=== PATIENT | female | born 1940 | race Caucasian/White ===

== ENCOUNTER 2018-01-08 17:50 | Emergency (ER) | payer MEDICARE, OTHER ==
[~2018-01-08 17:50] MED LIST: ADV100/50 INH; AMLO-96 PO; ASPI-1471 PO; ATR80PT PO; BLOO-1318 MC; BLOO-1511 MC; CIPR-345 PO; CYAN100088 PO; DAR100 PO; DEXL60CA6 PO; DIA5 PO; DIABETIC SHOES; DULO30CA35 PO; EZET1TAB63 PO; FAM20 PO; FER325 PO; FERR325T5 PO; FLU45SYR17 IM; FLUT1DIS28 IH; FLUT1DIS29 IH; GLI2 PO; GLIM2TAB42 PO; GLIM4TAB50 PO; HCTZ25 PO; HYDR12.558 PO; INSU100I30 SQ; IPRA4AER IH; LIS20 PO; LISI-347 PO; LISI-355 PO; LISI-357 PO; LISI-374 PO; LOR5/325 PO; MET500 PO; METF-1 PO; METF-420 PO; METO100T20 PO; MOM PO; NAPR-1043 PO; NITR-1 PO; OMEP-218 PO; OMEP40CA48 PO; OXYGENHOME INH; PANT40TA65 PO; PEN1DIS. MC; PNEU0.5D3 IM; PRAV40TA78 PO; PRE20 PO; PROAIRPT IH; RANI-366 PO; SIMV-44 PO; SIMV-54 PO; SITA50TA6 PO; TRAGENTA; WAR25 PO; penicillin PO
[2018-01-08] MEDS ORDERED: AMOX-556 PO (18:08)
--- NOTE | 2018-01-08 18:27 | EKG ---
[place] [facility] [place]IENT NAME: CHARITO BELL : [id number] MR: [id number] V: [id number] EXAM DATE: ORDERING PHYSICIAN: ANIKET HAYNES TECHNOLOGIST: KATHRYN Steven Reason : CHEST PAIN Blood Pressure : / mmHG Vent. Rate : 049 BPM Atrial Rate : 049 BPM P-R Int : 154 ms QRS Dur : 090 ms QT Int : 438 ms P-R-T Axes : 067 -18 052 degrees QTc Int : 395 ms Marked sinus bradycardia Abnormal ECG No previous ECGs available Confirmed by MARTA PÉREZ ([id number]) on 01/09/2018 12:30:35 PM Referred By: Confirmed By:MARTA PÉREZ
[2018-01-08 18:38] LABS: PLATELET COUNT, AUTOMATED 248 K/uL (150-450)
--- NOTE | 2018-01-08 18:44 | ER Report ---
History and Physical Time Seen By MD: 18:00 Hx. of Stated Complaint: patient reports high blood pressure x 3-4 days, states high today was 185/88, reports headaches and states sometimes she seems kind of out of it HPI/ROS CHIEF COMPLAINT: Hypertension, headache HISTORY OF PRESENT ILLNESS: She is a 77-year-old female coming by her , who presents the ED with complaint of elevated blood pressures for the past 1-2 weeks. She states that she has been checking her blood pressure at home and noted that it has been consistently about 180-190/90. She states that she is on lisinopril and metoprolol for her blood pressure but has not changed her medications recently. She states that she just arrived [place] from [place] where she usually spends the winter months 2 weeks ago. Patient denies any chest pain, shortness of breath, Alcon pain, nausea, vomiting. She does wear oxygen daily due to her COPD. She states that she has been noticing a headache in the past week. She denies any head injury. She has not noted any dizziness, numbness, tingling. REVIEW OF SYSTEMS: Constitutional: No fever, no chills. Eyes: No discharge. ENT: No sore throat. Cardiovascular: See history of present illness. Respiratory: No cough, no shortness of breath. Gastrointestinal: No abdominal pain, no vomiting. Genitourinary: No hematuria. Musculoskeletal: No back pain. Skin: No rashes. Neurological: See history of present illness. Allergies: Coded Allergies: No Known Allergies (Verified Allergy, Mild, 01/08/18) Uncoded Allergies: CLEAR TAPE (Allergy, Unknown, 05/10/15) Home Meds Active Scripts Blood Sugar Diagnostic (GLUCOSE TEST STRIP) 1 Each Strip, 1 EACH MC BID, #2 BOX 11 Refills Prov:SUSAN GALE MD 12/26/17 Insulin Glargine 100 Un/Ml Pen (LANTUS SOLOSTAR PEN) 100 Unit/1 Ml Insuln.pen, 20 UNIT SQ QHS, #1 BOX 1 Refill 20 units s/c at bedtime. Increase by 2 units every 2 days until fasting glucose is 130 or less. Prov:SUSAN GALE MD 12/26/17 Metoprolol Succinate (METOPROLOL SUCCINATE) 100 Mg Tab.er.24h, 1 TAB PO QDAY, # 90 TAB 1 Refill Prov:SUSAN GALE MD 10/02/17 Sitagliptin Phosphate (JANUVIA) 50 Mg Tablet, 50 MG PO QDAY, #90 TAB 1 Refill Prov:SUSAN GALE MD 10/02/17 Ranitidine Hcl (ZANTAC) 150 Mg Tablet, 150 MG PO BID, #60 TAB Prov:SUSAN GALE MD 08/26/17 Pen Needle, Diabetic, Safety (PEN NEEDLE) 1 Each Dis.needle, EACH MC DAILY Y for PRN for one year, #1 Prov:SUSAN GALE MD 08/23/17 Glimepiride (GLIMEPIRIDE) 4 Mg Tablet, 1 TAB PO DAILY, #10 TAB 0 Refills Prov:SUSAN GALE MD 06/17/17 Duloxetine Hcl (CYMBALTA) 30 Mg Capsule.dr, 30 MG PO BID, #10 CAP 0 Refills Prov:SUSAN GALE MD 06/17/17 Aspirin (ASPIR 81) 81 Mg Tablet.dr, 81 MG PO QDAY, #1 TAB Prov:SUSAN GALE MD 03/29/17 Ferrous Sulfate (FEOSOL) 325 Mg Tablet, 325 MG PO DAILY, #90 TAB 3 Refills Prov:SUSAN GALE MD 03/29/17 Cyanocobalamin (Vitamin B-12) (B-12) 1,000 Mcg Tablet.er, 2 TAB PO DAILY, #180 TAB 3 Refills Prov:SUSAN GALE MD 03/29/17 Fluticasone/Salmeterol (ADVAIR 250-50 DISKUS) 1 Each Disk.w.dev, 1 EACH IH BID, #3 DISK 3 Refills Prov:SUSAN GALE MD 03/29/17 Ipratropium/Albuterol Sulfate (COMBIVENT RESPIMAT INHAL SPRAY) 4 Gm Aer.w.adap, 1 PUFF IH QID, #3 INHALER 3 Refills Prov:SUSAN GALE MD 09/27/16 Lisinopril (LISINOPRIL) 40 Mg Tablet, 1 TAB PO QDAY, #30 TAB 0 Refills Prov:SUSAN GALE MD 09/06/16 [Diabetic Shoes] No Conflict Check, MISC ONCE, #1 0 Refills Prov:SUSAN GALE MD 12/26/15 Reported Medications Amoxicillin/Potassium Clav (AUGMENTIN 500-125 TABLET) 1 Each Tablet, 1 TAB PO Q8H for 5 Days, TAB 01/08/18 Oxygen (OXYGEN) Inha, 3 L INH HS, L 06/17/17 Discontinued Scripts Diazepam (VALIUM) 5 Mg Tablet, 5 MG PO QHS, #1 TAB Prov:SUSAN GALE MD 06/03/17 Pantoprazole Sodium (PANTOPRAZOLE SODIUM) 40 Mg Tablet.dr, 1 TAB PO QDAY, #90 TAB.SR 3 Refills Prov:SUSAN GALE MD 06/08/16 Reviewed Nurses Notes: Yes Old Medical Records Reviewed: Yes Hx Smoking: No Smoking Status: Former Smoker Hx Substance Use Disorder: No Hx Alcohol Use: No Constitutional Vital Sign - Last 24 Hours 01/08/18 01/08/18 18:45 19:11 Pulse 50 Resp 15 Pulse Ox 97 O2 Delivery Room Air O2 Flow Rate 2.0 Physical Exam General Appearance: The patient is alert, has no immediate need for airway protection and no signs of toxicity. Patient appears to be no acute distress. Eyes: Pupils equal and round no pallor or injection. ENT, Mouth: Mucous membranes are moist. Respiratory: There are no retractions, lungs are clear to auscultation. Cardiovascular: Regular rate and rhythm. Gastrointestinal: Abdomen is soft and non tender, no masses, bowel sounds normal. Neurological: Cranial nerves II-12 intact. Skin: Warm and dry, no rashes. Musculoskeletal: Neck is supple non tender. Extremities are nontender, nonswollen and have full range of motion. DIFFERENTIAL DIAGNOSIS: After history and physical exam differential diagnosis was considered for headache including but not limited to subarachnoid hemorrhage , migraine headache, tension headache and infectious causes such as meningitis, pharyngitis and sinusitis. Medical Decision Making Data Points Result Diagram: 01/08/18 1830 01/08/18 1830 Laboratory Hematology Test 01/08/18 18:30 Red Blood Count 4.35 M/uL (4.17-5.56) Mean Corpuscular Volume 85.1 fL (80.0-96.0) Mean Corpuscular Hemoglobin 28.6 pg (26.0-33.0) Mean Corpuscular Hemoglobin Concent 33.5 g/dL (32.0-36.0) Red Cell Distribution Width 14.6 % (11.5-14.5) Mean Platelet Volume 8.5 fL (7.2-11.1) Neutrophils (%) (Auto) 71.8 % (39.4-72.5) Lymphocytes (%) (Auto) 16.3 % (17.6-49.6) Monocytes (%) (Auto) 8.4 % (4.1-12.4) Eosinophils (%) (Auto) 2.5 % (0.4-6.7) Basophils (%) (Auto) 1.0 % (0.3-1.4) Nucleated RBC Relative Count (auto) 0.0 /100WBC Neutrophils # (Auto) 7.7 K/uL (2.0-7.4) Lymphocytes # (Auto) 1.8 K/uL (1.3-3.6) Monocytes # (Auto) 0.9 K/uL (0.3-1.0) Eosinophils # (Auto) 0.3 K/uL (0.0-0.5) Basophils # (Auto) 0.1 K/uL (0.0-0.1) Nucleated RBC Absolute Count (auto) 0.00 K/uL Sodium Level 140 mmol/L (137-145) Potassium Level 4.3 mmol/L (3.5-5.0) Chloride Level 99 mmol/L (98-107) Carbon Dioxide Level 29 mmol/L (22-31) Blood Urea Nitrogen 25 mg/dl (7-18) Creatinine 1.40 mg/dl (0.52-1.04) Glomerular Filtration Rate Calc 36.4 Random Glucose 97 mg/dl (75-110) Calcium Level 9.5 mg/dl (8.4-10.2) Total Bilirubin 0.4 mg/dl (0.2-1.3) Aspartate Amino Transf (AST/SGOT) 14 U/L (0-35) Alanine Aminotransferase (ALT/SGPT) 18 U/L (0-56) Alkaline Phosphatase 91 U/L (0-126) Troponin I < 0.012 ng/ml Total Protein 7.5 gm/dl (6.3-8.2) Albumin 3.6 g/dl (3.5-5.0) Chemistry Test 01/08/18 18:30 White Blood Count 10.8 k/uL (4.5-11.0) Red Blood Count 4.35 M/uL (4.17-5.56) Hemoglobin 12.4 g/dL (12.0-16.0) Hematocrit 37.0 % (34.0-47.0) Mean Corpuscular Volume 85.1 fL (80.0-96.0) Mean Corpuscular Hemoglobin 28.6 pg (26.0-33.0) Mean Corpuscular Hemoglobin Concent 33.5 g/dL (32.0-36.0) Red Cell Distribution Width 14.6 % (11.5-14.5) Platelet Count 248 K/uL (150-450) Mean Platelet Volume 8.5 fL (7.2-11.1) Neutrophils (%) (Auto) 71.8 % (39.4-72.5) Lymphocytes (%) (Auto) 16.3 % (17.6-49.6) Monocytes (%) (Auto) 8.4 % (4.1-12.4) Eosinophils (%) (Auto) 2.5 % (0.4-6.7) Basophils (%) (Auto) 1.0 % (0.3-1.4) Nucleated RBC Relative Count (auto) 0.0 /100WBC Neutrophils # (Auto) 7.7 K/uL (2.0-7.4) Lymphocytes # (Auto) 1.8 K/uL (1.3-3.6) Monocytes # (Auto) 0.9 K/uL (0.3-1.0) Eosinophils # (Auto) 0.3 K/uL (0.0-0.5) Basophils # (Auto) 0.1 K/uL (0.0-0.1) Nucleated RBC Absolute Count (auto) 0.00 K/uL Glomerular Filtration Rate Calc 36.4 Calcium Level 9.5 mg/dl (8.4-10.2) Total Bilirubin 0.4 mg/dl (0.2-1.3) Aspartate Amino Transf (AST/SGOT) 14 U/L (0-35) Alanine Aminotransferase (ALT/SGPT) 18 U/L (0-56) Alkaline Phosphatase 91 U/L (0-126) Troponin I < 0.012 ng/ml Total Protein 7.5 gm/dl (6.3-8.2) Albumin 3.6 g/dl (3.5-5.0) EKG/Imaging EKG Interpretation 12 lead EKG: Rhythm: Sinus bradycardia, rate [address] segments: No acute ST changes identified. Monitor Interpretation: Sinus Bradycardia Imaging CXR: IMPRESSION: 1. No acute cardiopulmonary process. Report Dictated By: Vince Rojas at 01/08/2018 6:59 PM Report E-Signed By: Vince Rojas at 01/08/2018 7:[address] Head: IMPRESSION: 1. Senescent changes without acute abnormality. Report Dictated By: Vince Rojas at 01/08/2018 7:45 PM Report E-Signed By: Vince Rojas at 01/08/2018 7:48 PM ED Course/Re-evaluation Clinical Indication for ER IV: Hydration ED Course Will obtain labs, CT of the head, chest x-ray, EKG. 01/08/2018 8:36:10 pm - assessed all labs, CT, chest x-ray, EKG with patient. Everything appears to be normal. Patient will be given 0.2 mg by mouth clonidine to lower her blood pressure. 01/08/2018 9:25:54 pm - her blood pressure is now 160/80 which seems to be improving. Discussed that she likely will need further blood pressure management by her primary care provider. She should monitor her blood pressure closely at home and discussed signs and symptoms of hypotension including dizziness and weakness. Decision to Disposition Date: Jan 08, 2018 Decision to Disposition Time: 21:25 Depart Departure Latest Vital Signs Vital Signs Date Time Temp Pulse Resp B/P (MAP) Pulse Ox O2 Delivery O2 Flow Rate FiO2 01/08/18 19:11 50 15 97 Room Air 01/08/18 18:45 2.0 Impression: Primary Impression: Hypertensive urgency Condition: Improved Disposition: HOME OR SELF-CARE Referrals: SUSAN GALE MD (PCP) Patient Instructions: Chronic Hypertension (ED) Additional Instructions: Stay well-hydrated. Monitor blood pressure closely at home. Follow-up with primary care provider in one to 2 days. If having any worsening or concerning symptoms may return to the emergency department. ANIKET HAYNES PA-C Jan 08, 2018 18:44
--- NOTE | 2018-01-08 19:03 | RADIOLOGY IMAGING REPORT ---
FACILITY: [facility] PATIENT NAME: Patrica Huff : 1940 MR: [id number] V: [id number] EXAM DATE: ORDERING PHYSICIAN: ANIKET HAYNES TECHNOLOGIST: Location: [facility] - [place] Patient: Patrica Huff : 1940 Visit/Account:[id number] Date of Sevice: 01/08/2018 CHEST SINGLE AP Indication: Chest tightness.. Comparison: None available Findings: Cardiomediastinal silhouette and pulmonary vessels within normal limits. There is no focal infiltrate or lobar consolidation. No pneumothorax or pleural effusion. No nodule. Upper abdomen is unremarkable. No acute bony abnormality. Degenerative change seen in both shoulders. IMPRESSION: 1. No acute cardiopulmonary process. Report Dictated By: Vince Rojas at 01/08/2018 6:59 PM Report E-Signed By: Vince Rojas at 01/08/2018 7:00 PM WSN:[id number]
[2018-01-08] MEDS ORDERED: cloNIDine HCL 0.1 MG TAB PO ONE (19:20)
--- NOTE | 2018-01-08 19:53 | RADIOLOGY IMAGING REPORT ---
FACILITY: [facility] - [place] PATIENT NAME: Patrica Huff : 1940 MR: [id number] V: [id number] EXAM DATE: ORDERING PHYSICIAN: ANIKET HAYNES TECHNOLOGIST: Location: [facility] - [place] Patient: Patrica Huff : 1940 Visit/Account:[id number] Date of Sevice: 01/08/2018 CT Head without contrast Indication: Headache, hypertension and dizziness. Comparison: None available Technique: Axial CT images were obtained through the brain from the skull base to the vertex without administration of IV contrast. Reformatted coronal and sagittal images were also obtained. One of the following dose optimization techniques was utilized in the performance of this exam: autom ated exposure control; adjustment of the mA and/or kV according to the patient's size; or use of an i terative reconstruction technique. Specific details can be referenced in the facility's radiology CT exam operational policy. Findings: No evidence of mass, mass effect, or midline shift. No acute intracranial hemorrhage or acute territorial infarction. No extra axial fluid collection or hydrocephalus. Age-related cerebral atrophy. Periventricular white matter ischemic changes consistent small vessel disease. Yin/white matter differentiation appears n ormal. Mild bilateral internal carotid artery calcifications. Bony structures show no fractures or lesions. The visualized paranasal sinuses and mastoid air cells are clear. IMPRESSION: 1. Senescent changes without acute abnormality. Report Dictated By: Vince Rojas at 01/08/2018 7:45 PM Report E-Signed By: Vince Rojas at 01/08/2018 7:48 PM WSN:[id number]
[2018-01-08 21:45] VITALS: BP 150/84
== END 2018-01-08 21:50 | disposition home or self-care (01) ==
LOC: ER 18:12
DX: I16.0 Hypertensive urgency (principal); R00.1 Bradycardia, unspecified; R94.31 Abnormal electrocardiogram [ECG] [EKG]
CPT/HCPCS: 70450; 71045; 84484; 85025; 93005; 99284; A9270; 82040; 82247; 82310; 82374; 82435; 82565; 82947; 84075; 84132; 84155; 84295; 84450; 84460; 84520

== ENCOUNTER → 2018-01-29 | Outpatient (CLI) | payer MEDICARE, OTHER ==
[~2018-01-29] MED LIST changes: +AMLO-99 PO; +AMOX-556 PO; +METF-421 PO
== END ==
LOC: LAB 12:00
PROVIDERS: ATTEND Emergency Medicine
DX: E11.9 Type 2 diabetes mellitus without complications (principal)
CPT/HCPCS: 36415; 83036

== ENCOUNTER → 2018-02-18 | Outpatient (CLI) | payer MEDICARE, OTHER ==
[~2018-02-18] MED LIST changes: +HYDR12.556 PO; +LEVO750T44 PO
== END ==
LOC: LAB 16:59
PROVIDERS: ATTEND Emergency Medicine
DX: R32 Unspecified urinary incontinence (principal)
CPT/HCPCS: 81001

== ENCOUNTER 2018-07-31 11:15 | Outpatient (RCR) | payer MEDICARE, OTHER ==
--- NOTE | 2018-05-06 17:15 | PT INITIAL EVALUATION ---
MEDICAL DIAGNOSIS: Balance problems TREATMENT DIAGNOSIS: same, decreased strength and endurance DATE OF ONSET: 09/16/17 SUBJECTIVE: Patrica Huff presents to physical therapy with complaints of increased number of falls due to balance problems, decreased strength, and decreased endurance. She reports that the falls are starting to come more frequent. She reports that the leg pain has returned from her spinal stenosis. She reports that her gastroparesis is under control as long as she maintains her diet. She reports that her activity continues to become less and less and understands that if she continues down this road that he will soon be in a wheelchair. She reports that she continues to have L shoulder pain and states that she was told that it will have to get replaced in the future and she does not want it to ever be replaced. She reports that she continues to utilize O2 during the day and at night. Pain location is L shoulder. REHAB PROBLEM LIST: Increased Pain Decreased ROM Decreased Strength Decreased Endurance Decreased Balance Decreased Function Decreased ADL's Decreased Mobility Decreased Gait PREVIOUS MEDICAL HISTORY: See EMR OCCUPATION: Retired OBJECTIVE: Posture: She demonstrates increased thoracic kyphosis, B rounded shoulders, and decreased lumbar lordosis. ROM: Trunk AROM: extension: NIL normal end feel. flexion: NIL normal end feel. R/L sidegliding: NIL normal end feel. B hips, knees, and ankles (all motions) WFL. Strength: B hip flexion, abduction, extension, B knee flexion and extension, and B ankle PF and DF: 4-/5; no pain during MMT's. Sensation: Intact L2-S1 Special Tests: 4 stage balance test 6 minute walk test: 171 feet in 6 minutes Mobility: Modified Independent Gait: With 4WW she demonstrated the following gait mechanics: increased base of support, forward trunk lean (flexion), increased base of support, decreased L step length, B hyperextension of knees, slow velocity, increased double limb support, decreased pelvic rotation, and decreased swing phase of gait due to decreased B step lengths with L>R. Balance: 4 stage balance: firm surface, normal base of support or decreased base of support, eyes opened and eyes closed: 60 seconds; however, she has increased sway with eyes closed. compliant surface, normal base of support, or decreased base of support, eyes opened: 60 seconds with increased sway and eyes closed: 15 seconds with severe sway. Tandem stance, firm surface, eyes opened: 10 seconds with either R or L foot in front. ASSESSMENT: Patrica will benefit from skilled physical therapy addressing the listed impairments to improve function and QOL. Short Term Goals 2 weeks: Pt will demonstrate independence and compliance in home exercise program. 6 weeks: Pt will be able to ambulate 513 feet or greater in 6 minutes to demonstrate improvement in endurance, function, and QOL. 8 weeks: Pt will demonstrate improvements in strength from baseline to 4+/5 or greater to improve function and QOL. 8 weeks: Pt will demonstrate 30 seconds or greater in the 4 stage balance to demonstrate improvements in balance strategies in all conditions. Patient's Goals increase balance, strength, and endurance PLAN: Patient to be seen for Strengthening/condition Spinal Stabilization Work Hardening/Cond Stretching Neuromuscular Re-ed Closed Chain Program Posture/Body mechanics Gait Trg/Balance Trg Home Exercise Program Therapeutic Activities 2-3x/week for 2 Months If you have any questions, comments, or concerns about this report or plan, please contact me at . Thank you, Suraj Wolf, PT, DPT [facility]
--- NOTE | 2018-06-10 15:27 | PT PLAN OF CARE ---
Physician: Kylie Braga MD Patient is being seen: 3x/week Therapist: Suraj Wolf, PT, DPT Medical Diagnosis: Balance problems Treatment Diagnosis: same, decreased strength and endurance Date of Onset: 09/16/17 Date of Initial Evaluation: 05/05/18 Date patient was last seen: 06/10/18 Number of treatments: 11 Number of cancellations/No shows: 2 INTERVENTIONS: Strengthening/condition Spinal Stabilization Work Hardening/Cond Stretching Neuromuscular Re-ed Closed Chain Program Posture/Body mechanics Gait Trg/Balance Trg Home Exercise Program Therapeutic Activities GOALS: 2 weeks: Pt will demonstrate independence and compliance in home exercise program. Progressing well 6 weeks: Pt will be able to ambulate 513 feet or greater in 6 minutes to demonstrate improvement in endurance, function, and QOL. MET 8 weeks: Pt will demonstrate improvements in strength from baseline to 4+/5 or greater to improve function and QOL. Not MET 8 weeks: Pt will demonstrate 30 seconds or greater in the 4 stage balance to demonstrate improvements in balance strategies in all conditions. Progressing well PATIENT'S GOAL: increase balance, strength, and endurance Status of Patient's Goals: Progressing well Patient Compliance: Good Prognosis: Good Reasons for continuing therapy: This is a progress note for Patrica Huff. She reports that she is feeling much better. She reports that she has returned to doing laundry and cleaning the house. She reports that she feels like her strength, balance, endurance, and ability to get around has significantly improved over the last few weeks. She continues to demonstrate significant improvements with endurance as she was able to improve her 6 minute walk test from 171 feet to 613 feet. Furthermore, she demonstrated improvements with B LE from 4-/5 to 4/5 to 4+/5. Furthermore, she demonstrated significant improvements in her 4 stage balance and was able to do all positions for 60 seconds with the exception of tandem stance with the eyes closed. Overall, she is progressing well and we will continue to improve balance, strength, endurance, and return to prior level of function. Posture: She demonstrates increased thoracic kyphosis, B rounded shoulders, and decreased lumbar lordosis. ROM: Trunk AROM: extension: NIL normal end feel. flexion: NIL normal end feel. R/L sidegliding: NIL normal end feel. B hips, knees, and ankles (all motions) WFL. Strength: B hip flexion, abduction, extension, B knee flexion and extension, and B ankle PF and DF: 4/5; no pain during MMT's. Palpation: Special Tests: 4 stage balance test: firm surface, normal base of support or decreased base of support, eyes opened and eyes closed: 60 seconds; however, she has increased sway with eyes closed. compliant surface, normal base of support, or decreased base of support, eyes opened: 60 seconds with increased sway and eyes closed: 60 seconds with moderate sway. Tandem stance, firm surface, eyes opened: 20 seconds with R foot in front and L foot in front: 10 seconds. 6 minute walk test: 613 feet in 6 minutes Mobility: Modified Independent If you have any questions, please contact me at [phone]. Thank you, Suraj Wolf, PT, DPT [facility]
[~2018-07-31 11:15] MED LIST changes: +AMLO-111 PO; +AMLO-113 PO; -AMLO-96 PO; -AMLO-99 PO; +FLU180SY11 IM; +INSU200I4 SC; -METF-421 PO; +METF-452 PO; +POLY119P24 PO; +SITA100T PO
--- NOTE | 2018-07-31 18:43 | PT PLAN OF CARE ---
Physician: Kylie Braga MD Patient is being seen: 2x/week Therapist: Suraj Wolf, PT, DPT Medical Diagnosis: Balance problems Treatment Diagnosis: same, decreased strength and endurance Date of Onset: 09/16/17 Date of Initial Evaluation: 05/05/18 Date patient was last seen: 07/31/18 Number of treatments: 22 Number of cancellations/No shows: 3 INTERVENTIONS: Strengthening/condition Spinal Stabilization Work Hardening/Cond Stretching Neuromuscular Re-ed Closed Chain Program Posture/Body mechanics Gait Trg/Balance Trg Home Exercise Program Therapeutic Activities GOALS: 2 weeks: Pt will demonstrate independence and compliance in home exercise program. Progressing well 6 weeks: Pt will be able to ambulate 513 feet or greater in 6 minutes to demonstrate improvement in endurance, function, and QOL. MET 8 weeks: Pt will demonstrate improvements in strength from baseline to 4+/5 or greater to improve function and QOL. Not MET 8 weeks: Pt will demonstrate 30 seconds or greater in the 4 stage balance to demonstrate improvements in balance strategies in all conditions. Progressing well PATIENT'S GOAL: increase balance, strength, and endurance Status of Patient's Goals: Progressing well Patient Compliance: Good Prognosis: Good Reasons for continuing therapy: This is a progress note for Patrica Huff. She reports that she is not doing so well today since she ate a steak yesterday and typically will get sick after doing so. She reports that she feels like she is doing so much more since starting physical therapy. She reports that she can perform the following activities that she could not do prior to starting PT: able to get out of the bed and get to the bathroom without help from her , climb up and down the stairs, walk around the block, walk to the mailbox, get out her chair at the table, and has returned to cooking. She is progressing well within PT and has demonstrated the following improvements: increased endurance, increased gait mechanics, increased core and B LE strength, increased functional strength, and has returned to cooking and a lot of functional activities that she has not previously done so. Overall, she is progressing well and we will continue to improve balance, strength, endurance, and return to prior level of function. Posture: She demonstrates increased thoracic kyphosis, B rounded shoulders, and decreased lumbar lordosis. ROM: Trunk AROM: extension: NIL normal end feel. flexion: NIL normal end feel. R/L sidegliding: NIL normal end feel. B hips, knees, and ankles (all motions) WFL. Strength: B hip flexion, abduction, extension, B knee flexion and extension, and B ankle PF and DF: 4/5; no pain during MMT's. Palpation: Special Tests: 4 stage balance test: firm surface, normal base of support or decreased base of support, eyes opened and eyes closed: 60 seconds; however, she has increased sway with eyes closed. compliant surface, normal base of support, or decreased base of support, eyes opened: 60 seconds with increased sway and eyes closed: 60 seconds with moderate sway. Tandem stance, firm surface, eyes opened: 20 seconds with R foot in front and L foot in front: 10 seconds. 6 minute walk test: 613 feet in 6 minutes Mobility: Modified Independent If you have any questions, please contact me at [phone]. Thank you, Suraj Wolf, PT, DPT [facility]
== END 2018-08-03 ==
LOC: PT 11:15
PROVIDERS: ATTEND Emergency Medicine
DX: M25.512 Pain in left shoulder (principal); Z99.81 Dependence on supplemental oxygen; R26.89 Other abnormalities of gait and mobility; R29.6 Repeated falls
CPT/HCPCS: 97162

== ENCOUNTER → 2018-09-04 | Outpatient (CLI) | payer MEDICARE, OTHER | LOC: LAB 07:29 | PROVIDERS: ATTEND Emergency Medicine | DX: E11.9 Type 2 diabetes mellitus without complications (principal); N18.3 Chronic kidney disease, stage 3 (moderate); E34.9 Endocrine disorder, unspecified | CPT/HCPCS: 36415; 82306; 82310; 82374; 82435; 82565; 82947; 83036; 83970; 84132; 84295; 84520 ==

== ENCOUNTER → 2019-01-26 | Outpatient (CLI) | payer MEDICARE, OTHER ==
[~2019-01-26] MED LIST changes: -AMLO-111 PO; -AMLO-113 PO; +AMLO-125 PO; +AMLO-127 PO; +DULA0.75 SC; +ROSU10TA5 PO
== END ==
LOC: LAB 12:45
PROVIDERS: ATTEND Internal Medicine Nephrology
DX: N17.9 Acute kidney failure, unspecified (principal); R80.8 Other proteinuria; D63.1 Anemia in chronic kidney disease; E61.1 Iron deficiency
CPT/HCPCS: 36415; 82040; 82310; 82374; 82435; 82565; 82570; 82728; 82947; 83540; 83550; 83970; 84100; 84132; 84156; 84165; 84295; 84520; 85018

== ENCOUNTER → 2019-02-18 | Outpatient (CLI) | payer MEDICARE, OTHER ==
[~2019-02-18] MED LIST changes: +AZIT-1 PO; +EMPA10TA PO; +GLIM2TAB43 PO; -RANI-366 PO; +RANI-54 PO
--- NOTE | 2019-02-18 14:19 | RADIOLOGY IMAGING REPORT ---
FACILITY: [facility] - [place] PATIENT NAME: Patrica Huff : 1940 MR: [id number] V: [id number] EXAM DATE: ORDERING PHYSICIAN: SUSAN GALE TECHNOLOGIST: [place] [facility] [place] Huff : 1940 Visit/Account:[id number] Date of Sevice: 02/18/2019 2 VIEWS CHEST INDICATION: Cough COMPARISON: January 08, 2018. FINDINGS: Heart size within normal limits. There is no focal infiltrate or lobar consolidation. Mild atelectasis and/or scarring within the jaskaran ng bases. There is no pneumothorax or pleural effusion. Degenerative changes within the thoracic spine. IMPRESSION: 1. No acute cardiopulmonary process. Report Dictated By: Gerardo Doss MD at 02/18/2019 2:12 PM Report E-Signed By: Gerardo Doss MD at 02/18/2019 2:14 PM WSN:[email or web address]
== END ==
LOC: RAD 13:04
PROVIDERS: ATTEND Emergency Medicine
DX: R05 Cough (principal)
CPT/HCPCS: 71046

== ENCOUNTER 2019-02-26 11:00 | Outpatient (RCR) | payer MEDICARE, OTHER ==
[2019-02-18] MEDS: LIDOCAINE/SOD BICARB 8.4% SYR ID PRN (14:17)
[2019-02-18] MEDS: NS(*) 0.9% 100 ML BAG 100 ML IVPB PRN (14:17)
[2019-02-18 16:14] VITALS: BP 133/55
[~2019-02-26 11:00] MED LIST changes: +DEXTROSE 5%(*) 100 ML BAG 100 ML IVPB PRN; +IRON SUCROSE 100 MG/5 ML VIAL 300 MG in NS(*) 0.9% 250 ML BAG 250 ML IVPB ONE
[2019-02-26 11:19] VITALS: BP 131/77
[2019-02-26] MEDS: LIDOCAINE/SOD BICARB 8.4% SYR ID PRN (11:49)
[2019-02-26] MEDS: NS(*) 0.9% 100 ML BAG 100 ML IVPB PRN (11:49)
[2019-02-26] MEDS ORDERED: IRON SUCROSE 100 MG/5 ML VIAL 300 MG in NS(*) 0.9% 250 ML BAG 250 ML IVPB ONE (12:00)
[2019-02-26 13:29] VITALS: BP 125/68
[2019-03-02] MEDS ORDERED: FLUT1DIS28 IH (11:22)
[2019-03-03] MEDS ORDERED: IPRA3AMP10 IH ×3 (14:57→15:21)
[2019-03-03] MEDS ORDERED: LEVO750T44 PO (15:29)
== END 2019-03-16 13:06 | disposition home or self-care (01) ==
LOC: SPU 11:00
PROVIDERS: ATTEND Internal Medicine Nephrology
DX: E61.1 Iron deficiency (principal); N18.4 Chronic kidney disease, stage 4 (severe); D63.1 Anemia in chronic kidney disease
CPT/HCPCS: 71046; 96365; J1756; J7050; 96366

== ENCOUNTER → 2019-03-03 | Outpatient (CLI) | payer MEDICARE, OTHER ==
[~2019-03-03] MED LIST changes: -DEXTROSE 5%(*) 100 ML BAG 100 ML IVPB PRN; +IPRA3AMP10 IH; -IRON SUCROSE 100 MG/5 ML VIAL 300 MG in NS(*) 0.9% 250 ML BAG 250 ML IVPB ONE
--- NOTE | 2019-03-03 14:52 | RADIOLOGY IMAGING REPORT ---
FACILITY: [facility] PATIENT NAME: Patrica Huff : 1940 MR: [id number] V: [id number] EXAM DATE: ORDERING PHYSICIAN: SUSAN GALE TECHNOLOGIST[place] [facility] [place] : 1940 Visit/Account:[id number] Date of Sevice: 03/03/2019 CHEST PA LAT HISTORY: cough COMPARISON: 02/18/2019 FINDINGS: Cardiomediastinal contours: Normal Lungs and pleura: Stable left linear opacities most consistent with platelike atelectasis/scar. No p neumothorax. Bones/soft tissues: Normal Other findings: None significant IMPRESSION: 1. Stable linear left basilar opacities most consistent with platelike atelectasis/scar. Report Dictated By: Bala Brown MD at 03/03/2019 2:44 PM Report E-Signed By: Bala Brown MD at 03/03/2019 2:46 PM WSN:[email or web address]
== END ==
LOC: RAD 14:03
PROVIDERS: ATTEND Emergency Medicine
DX: R05 Cough (principal)
CPT/HCPCS: 71046

== ENCOUNTER → 2019-03-03 | Outpatient (CLI) | payer MEDICARE, OTHER ==
[2019-03-03 15:20] LABS: PLATELET COUNT, AUTOMATED 278 K/uL (150-450)
== END ==
LOC: LAB 14:52
PROVIDERS: ATTEND Emergency Medicine
DX: J40 Bronchitis, not specified as acute or chronic (principal)
CPT/HCPCS: 36415; 82040; 82247; 82310; 82374; 82435; 82565; 82947; 84075; 84132; 84155; 84295; 84450; 84460; 84520; 85025; 86140

== ENCOUNTER → 2019-05-04 | Outpatient (CLI) | payer MEDICARE, OTHER | LOC: LAB 10:06 | PROVIDERS: ATTEND Emergency Medicine | DX: N39.0 Urinary tract infection, site not specified (principal); R32 Unspecified urinary incontinence; B96.4 Proteus (mirabilis) (morganii) as the cause of diseases classified elsewhere | CPT/HCPCS: 81001; 87077; 87088; 87186 ==